=== PATIENT | male | born 1980 | race Two or more races ===

== ENCOUNTER 2018-04-27 08:10 | Emergency (ER) | payer OTHER ==
[~2018-04-27] VITALS: Ht 185.4 cm; Wt 93.4 kg
--- NOTE | 2018-04-27 08:15 | NUR ---
AAOX3, BIBRA 83 FOR PSYCH EVAL, PT C/O AUDITORY HALLUCINATION, THE VOICE IS TELLING HIM TO RUN INTO THE TRAFFIC. PATIENT WAS CALM AND COOPERATIVE AT THIS TIME. SKIN IS WARM AND DRY. DR PATTEN AT BS FOR EVAL.
[2018-04-27] MEDS ORDERED: OLANZAPINE 5 MG TABLET PO ONE (08:30)
[2018-04-27] MEDS ORDERED: OLANZAPINE 5 MG TABLET ONE (08:36)
[2018-04-27 08:39] LABS: BASOPHILS % (AUTO) 0.2 % (0.0-2.0); HEMATOCRIT 41 % (39-51); HEMOGLOBIN 13.5 g/dL (13.5-17.5); LYMPHOCYTES # (AUTO) 2.1 /CMM (0.8-4.8); LYMPHOCYTES % (AUTO) 12.9 % (20.0-44.0); MEAN CORPUSCULAR HEMOGLOBIN 32 PG (26.0-33.0); MEAN CORPUSCULAR HGB CONC 33 g/dl (31.0-36.0); MEAN CORPUSCULAR VOLUME 97 fL (80-96); MONOCYTES # (AUTO) 0.5 /CMM (0.1-1.30); MONOCYTES % (AUTO) 3.3 % (2.0-12.0); NEUTROPHILS # (AUTO) 13.4 /CMM (1.8-8.9); NEUTROPHILS % (AUTO) 83.6 % (43.0-81.0); PLATELET COUNT (AUTO) 355 /CMM (150-450); RDW COEFFICIENT OF VARIATION 14.3 (11.5-15.0); RED BLOOD CELL COUNT(AUTO) 4.24 MIL/uL (4.5-6.0)
[2018-04-27] MEDS ORDERED: LORAZEPAM 1 MG TABLET ONE (08:39)
[2018-04-27 09:00] LABS: CALCIUM, SERUM 8.9 mg/dL (8.5-10.1); CARBON DIOXIDE 26 mmol/L (21-32); CHLORIDE 105 mmol/L (98-107); GLUCOSE 95 mg/dL (74-106); POTASSIUM 3.9 mmol/L (3.5-5.1); SODIUM SERUM 143 mmol/L (136-145); UREA NITROGEN, BLOOD 10 mg/dL (7-18)
[2018-04-27] MEDS ORDERED: LORAZEPAM 1 MG TABLET PO ONE (09:00)
[2018-04-27 09:05] LABS: ACETAMINOPHEN 0 ug/ml (10-30); ALANINE AMINOTRANSFERASE 100 U/L (12-78); ALBUMIN 3.6 g/dL (3.4-5.0); ALCOHOL, BLOOD < 3 mg/dL (0-0); ALKALINE PHOSPHATASE 95 U/L (46-116); ASPARTATE AMINOTRANSFERASE 52 U/L (15-37); BILIRUBIN,DIRECT 0.1 mg/dL (0.0-0.2); BILIRUBIN,TOTAL 0.2 mg/dL (0.2-1.0); TOTAL PROTEIN, SERUM 7.7 g/dL (6.4-8.2)
--- NOTE | 2018-04-27 09:08 | NUR ---
URINE OBTAINED AND SENT TO LAB.
[2018-04-27 09:30] LABS: APPEARANCE,URINE Clear (CLEAR); BILIRUBIN,URINE Negative (NEGATIVE); BLOOD, URINE Negative Ery/uL (NEGATIVE); COLOR,URINE Yellow (YELLOW); KETONES,URINE Negative (NEGATIVE); LEUKOCYTE ESTERASE ,URINE Negative (NEGATIVE); NITRITE, URINE Negative (NEGATIVE); PH,URINE 5.5 (5.0-8.0); PROTEIN,URINE Trace mg/dl (NEGATIVE); UGLUCOSE Negative (NEGATIVE); UROBILINOGEN,URINE 0.2 EU/dL (0.2)
[2018-04-27 09:42] LABS: BACTERIA,URINE Rare /HPF (None Seen); RBC,URINE 0-2 /HPF (0-2); SQUAMOUS EPITHELIAL CELL,UR Rare /HPF (None Seen); WBC,URINE 0-2 /HPF (0-3)
[2018-04-27 10:10] VITALS: BP 122/66
--- NOTE | 2018-04-27 11:25 | NUR ---
Accepted at [facility] Dr. De La Torre Call for report- [phone] ext. [phone]
--- NOTE | 2018-04-27 12:04 | NUR ---
[facility] ETA 1258
--- NOTE | 2018-04-27 12:08 | NUR ---
REPORT GIVEN TO ANDREI ECHEVERRIA FOR HÉCTOR UPON TRANSFER.
--- NOTE | 2018-04-27 12:43 | NUR ---
Report given to emt at bedside. Patient discharged to [facility] in stable condition. Written and verbal after care instructions given. Patient verbalizes understanding of instruction. Patient left via ambulance.
== END 2018-04-27 12:43 ==
LOC: ER 08:12
DX: F28 Other psychotic disorder not due to a substance or known physiological condition (principal); F20.9 Schizophrenia, unspecified; F22 Delusional disorders
CPT/HCPCS: 36415; 80048; 80076; 80305; 80329; 81001; 85025; 99285; A4606; G0480 ×2; Z7610; 81000-TC

== ENCOUNTER 2018-08-10 09:59 | Emergency (ER) | payer OTHER ==
[~2018-08-10] VITALS: Ht 182.9 cm; Wt 107.5 kg
--- NOTE | 2018-08-10 10:22 | NUR ---
BIB SHERRIFF OFFICERS, PT C/O NUMBNESS ON FINGERS & RT FOOT W/ SOB & CP STARTED 1 HR AGO. PT IN CUSTODY & ON SUICIDAL WATCH PER [facility] OFFICERS. PT AAOX4, VSS. DENIES SOB, DIZZINESS, WEAKNESS OR ANY OTHER DISCOMFORT @ THIS TIME. AWAITING EVAL BY ERMD & WILL CONT TO MONITOR. SHAWN OFFICERS @ BS.
--- NOTE | 2018-08-10 12:09 | NUR ---
Patient discharged to home in stable condition. Written and verbal after care instructions given. Patient verbalizes understanding of instruction.
[2018-08-10 12:12] VITALS: BP 124/75
== END 2018-08-10 12:13 ==
LOC: ER 10:05
DX: R07.89 Other chest pain (principal); F41.9 Anxiety disorder, unspecified; F20.9 Schizophrenia, unspecified; F31.9 Bipolar disorder, unspecified; F22 Delusional disorders

== ENCOUNTER 2018-09-26 10:13 | Emergency (ER) | payer OTHER ==
[~2018-09-26] VITALS: Ht 182.9 cm; Wt 99.8 kg
--- NOTE | 2018-09-26 11:26 | NUR ---
NILAY 881 FROM [place] FOR SI, HEARING VOICES PLAN IS TO OD HIMSELF WITH PILLS. -HI. SKIN INTACT, NO ACUTE DISTRESS NOTED. SUICIDE PRECAUTIONS IMPLEMENTED. READY FOR EVAL.
[2018-09-26 11:52] LABS: BASOPHILS % (AUTO) 0.3 % (0.0-2.0); EOSINOPHILS % (AUTO) 0.4 % (0.0-6.0); HEMATOCRIT 43 % (39-51); HEMOGLOBIN 14.9 g/dL (13.5-17.5); LYMPHOCYTES # (AUTO) 1.5 /CMM (0.8-4.8); LYMPHOCYTES % (AUTO) 9.6 % (20.0-44.0); MEAN CORPUSCULAR HGB CONC 34 g/dl (31.0-36.0); MEAN CORPUSCULAR VOLUME 95 fL (80-96); MONOCYTES % (AUTO) 6.3 % (2.0-12.0); NEUTROPHILS # (AUTO) 13.1 /CMM (1.8-8.9); NEUTROPHILS % (AUTO) 83.4 % (43.0-81.0); PLATELET COUNT (AUTO) 236 /CMM (150-450); RED BLOOD CELL COUNT(AUTO) 4.59 MIL/uL (4.5-6.0); WHITE BLOOD COUNT (AUTO) 15.7 K/uL (4.3-11.0)
--- NOTE | 2018-09-26 12:11 | NUR ---
URINE SENT TO STAT LAB
[2018-09-26 12:14] LABS: CALCIUM, SERUM 9.1 mg/dL (8.5-10.1); CARBON DIOXIDE 30 mmol/L (21-32); CHLORIDE 102 mmol/L (98-107); CREATININE 0.7 mg/dL (0.6-1.3); GLUCOSE 101 mg/dL (74-106); POTASSIUM 3.9 mmol/L (3.5-5.1); SODIUM SERUM 140 mmol/L (136-145); UREA NITROGEN, BLOOD 14 mg/dL (7-18)
[2018-09-26 12:18] LABS: ALANINE AMINOTRANSFERASE 59 U/L (12-78); ALBUMIN 3.5 g/dL (3.4-5.0); ALCOHOL, BLOOD < 3 mg/dL (0-0); ALKALINE PHOSPHATASE 124 U/L (46-116); ASPARTATE AMINOTRANSFERASE 33 U/L (15-37); BILIRUBIN,DIRECT 0.1 mg/dL (0.0-0.2); BILIRUBIN,TOTAL 0.4 mg/dL (0.2-1.0); TOTAL PROTEIN, SERUM 7.4 g/dL (6.4-8.2)
[2018-09-26 12:19] LABS: ACETAMINOPHEN 0 ug/ml (10-30); SALICYLATE 1.1 mg/dL (2.8-20.0)
[2018-09-26 12:23] LABS: APPEARANCE,URINE Turbid (CLEAR); BILIRUBIN,URINE SMALL (NEGATIVE); BLOOD, URINE Negative Ery/uL (NEGATIVE); KETONES,URINE Trace (NEGATIVE); LEUKOCYTE ESTERASE ,URINE Negative (NEGATIVE); NITRITE, URINE Negative (NEGATIVE); PH,URINE 5.5 (5.0-8.0); PROTEIN,URINE 30 mg/dl (NEGATIVE); UGLUCOSE Negative (NEGATIVE); UROBILINOGEN,URINE 0.2 EU/dL (0.2)
[2018-09-26 12:29] LABS: COLOR,URINE Dark Yellow (YELLOW)
[2018-09-26 12:33] LABS: BACTERIA,URINE None seen /HPF (None Seen); RBC,URINE 0-2 /HPF (0-2); SQUAMOUS EPITHELIAL CELL,UR Few /HPF (None Seen); URINE AMORPHOUS URATE Moderate /HPF (None Seen); WBC,URINE 0-2 /HPF (0-3)
--- NOTE | 2018-09-26 13:11 | NUR ---
TAX AGENT AT BEDSIDE
--- NOTE | 2018-09-26 13:20 | NUR ---
STACEY, DICTATING MACHINE MECHANIC, CONTACTED FOR PSYCH EVAL PER DR ALICEA
--- NOTE | 2018-09-26 13:40 | NUR ---
PT PROVIDED FOOD TRAY
--- NOTE | 2018-09-26 14:13 | NUR ---
SEEN BY KAYLEN IBARRA
--- NOTE | 2018-09-26 14:42 | NUR ---
Patient discharged to home in stable condition. Written and verbal after care instructions given. Patient verbalizes understanding of instruction. Addendum: 09/26/18 at 1520 by ROBE Amendment undone in ED - 09/26/18 at 1521 by ROBE REFUSED TO WAIT FOR ACI OR SIGN DISCHARGE PAPERS.
--- NOTE | 2018-09-26 14:43 | NUR ---
REFUSED TO WAIT FOR ACI OR SIGN DISCHARGE PAPERS.
[2018-09-26 15:22] VITALS: BP 142/84
== END 2018-09-26 14:44 | disposition home or self-care (01) ==
LOC: ER 10:13
DX: R45.851 Suicidal ideations (principal); D72.829 Elevated white blood cell count, unspecified; F20.9 Schizophrenia, unspecified; F31.9 Bipolar disorder, unspecified; F22 Delusional disorders; Z59.0 Homelessness
CPT/HCPCS: 36415; 71045-TC; 80048-TC; 80076-TC; 80305; 81000-TC; 85025-TC; G0480

== ENCOUNTER 2021-06-08 15:35 | Emergency (ER) | payer OTHER ==
[~2021-06-08] VITALS: Ht 182.9 cm; Wt 95.3 kg
[2021-06-08 15:57] LABS: BASOPHILS % (AUTO) 0.4 % (0.0-2.0); EOSINOPHILS % (AUTO) 0.2 % (0.0-6.0); HEMATOCRIT 43 % (39-51); HEMOGLOBIN 14.3 g/dL (13.5-17.5); LYMPHOCYTES # (AUTO) 1.8 K/uL (0.8-4.8); LYMPHOCYTES % (AUTO) 17.6 % (20.0-44.0); MEAN CORPUSCULAR HGB CONC 33 g/dl (31.0-36.0); MEAN CORPUSCULAR VOLUME 97 fL (80-96); MONOCYTES # (AUTO) 0.4 K/uL (0.1-1.30); MONOCYTES % (AUTO) 4.3 % (2.0-12.0); NEUTROPHILS # (AUTO) 7.8 K/uL (1.8-8.9); NEUTROPHILS % (AUTO) 77.5 % (43.0-81.0); PLATELET COUNT (AUTO) 251 K/uL (150-450); RED BLOOD CELL COUNT(AUTO) 4.45 MIL/uL (4.5-6.0)
[2021-06-08 16:11] LABS: CALCIUM, SERUM 8.2 mg/dL (8.5-10.1); CARBON DIOXIDE 25 mmol/L (21-32); CHLORIDE 104 mmol/L (98-107); CREATININE 0.7 mg/dL (0.6-1.3); GLUCOSE 92 mg/dL (74-106); POTASSIUM 3.6 mmol/L (3.5-5.1); SODIUM SERUM 141 mmol/L (136-145); UREA NITROGEN, BLOOD 8 mg/dL (7-18)
[2021-06-08 16:17] LABS: ACETAMINOPHEN < 10 ug/ml (10-30); ALANINE AMINOTRANSFERASE 71 U/L (12-78); ALBUMIN 3.9 g/dL (3.4-5.0); ALCOHOL, BLOOD 92 mg/dL (0-0); ALKALINE PHOSPHATASE 118 U/L (46-116); ASPARTATE AMINOTRANSFERASE 70 U/L (15-37); BILIRUBIN,DIRECT 0.1 mg/dL (0.0-0.2); BILIRUBIN,TOTAL 0.4 mg/dL (0.2-1.0); TOTAL PROTEIN, SERUM 8.1 g/dL (6.4-8.2)
--- NOTE | 2021-06-08 20:08 | NUR ---
PATIENT CAME TO THE ER BED 14 BIBSELF C/O SUICIDAL IDEATIONPLANS TO JUMP IN FRONT OF A TRAIN. PATIENT STATES, "I WANT VOLUNTARY PSYCH ADMISSION TO [facility]". PATIENT IS ALERT AND ORIENTED x4. DENIES PAIN, DENIES SOB. PATIENT IS CONNECTED TO THE MONITOR. PERSONAL BELONGINGS ARE REMOVED AND PLACED INTO LOCKED LOCKER. PATIENT IS CURRENTLY IN A CLEAN GOWN. SITTER IS AT BEDSIDE.
--- NOTE | 2021-06-08 21:52 | NUR ---
PATIENT IS RESTING. EYES ARE OPENED. PATIENT IS BREATHING EVENLY AND UNLABORED ON ROOM AIR. CURRENTLY NO COMPLAINTS. SITTER IS AT BEDSIDE.
--- NOTE | 2021-06-08 22:00 | NUR ---
pt sitting quietly watching tv, attached to monitor and pox.
--- NOTE | 2021-06-09 | NUR ---
Patient is resting comfortably in bed with eyes closed. Easily aroused. VSS
--- NOTE | 2021-06-09 02:00 | NUR ---
pt sleeping, easily arousable, attached to monitor
--- NOTE | 2021-06-09 03:45 | NUR ---
pt sleeping, breathing evenly and unlabored. vss
--- NOTE | 2021-06-09 05:41 | NUR ---
urine sample and covid swab sent to lab
[2021-06-09 05:54] LABS: COLOR,URINE YELLOW (YELLOW)
[2021-06-09 05:55] LABS: BILIRUBIN,URINE NEGATIVE (NEGATIVE); LEUKOCYTE ESTERASE ,URINE NEGATIVE (NEGATIVE); NITRITE, URINE NEGATIVE (NEGATIVE); PH,URINE 6.5 (5.0-8.0); PROTEIN,URINE NEGATIVE (NEGATIVE); UGLUCOSE NEGATIVE (NEGATIVE); UROBILINOGEN,URINE 0.2 EU/dL (0.2)
[2021-06-09 06:04] LABS: BACTERIA,URINE None seen /HPF (None Seen); RBC,URINE 0-2 /HPF (0-2); SQUAMOUS EPITHELIAL CELL,UR Few /HPF (None Seen); WBC,URINE 0-2 /HPF (0-3)
[2021-06-09 06:05] LABS: MUCUS,URINE Few /LPF (None Seen)
--- NOTE | 2021-06-09 06:27 | NUR ---
faxed face sheet and clinicals to [facility] intake. pending covid result
[2021-06-09 13:17] VITALS: BP 120/63
--- NOTE | 2021-06-09 13:21 | NUR ---
CALLED [facility] FOR UPDATE THEY HAVE CLINICALS JUST AWAITING ACCEPTANCE.
--- NOTE | 2021-06-09 13:28 | NUR ---
"SS Consult: SS consult for SI. Pt. Is a 41-year-old male. Pt. demonstrates adequate insight to the reason for hospitalization. Per pt., he was brought to hospital by police due to SI. Pt. was oriented x3, alert, and cooperative. During interview, pt. was capable of following directions, made appropriate eye-contact, and had scratches on face due to hurting self. Per pt., he tried cutting his face. KAYLEN explored pt.s Hx of mental health and substance abuse. Pt. reported no Hx of mental health, SI/HI, denied AH/VH, paranoia or delusions. Per pt., he currently uses alcohol and marijuana. Per pt., he has been feeling hopeless and tried hurting himself in the past [2019]. Per pt., he has tried hurting self with cutting parts of his face. KAYLEN explored pt.s living situation. Per pt., he has been living on the streets for a month. Per pt., he reports having no adequate support. KAYLEN explored pt.s financial status. Per pt., he receives GR. Pt. reported that he wants a referral to [facility]. KAYLEN faxed pt.s clinical paperwork over to [facility] [Jefe, fax number: [phone]]. Jefe mentioned that pt. has been accepted. KAYLEN provided homeless and substance abuse resources and pt. accepted. Pt. was willing to sign homeless waiver. Plan: KAYLEN provided available resources and pt. accepted. KAYLEN faxed over pt.s clinical paperwork to [facility] and pt. has been accepted. Per pt., he will use resources that were provided. Resources Provided: Year-round shelters: [place] [facility] [address] [place] [address] ; [facility] [address] [place] [address]; [place] [facility] Umtmekm8241 [facility] [address] Winter Shelters: Carlos Manuel Cassidy Provider: Herman [facility] [place] Address: [address] [place], [address] # of Beds: 47 Population Served: [facility] [place] 6 | [facility] Ilda Chaudhryhusolitario Cassidy Provider: [facility] at Last Address: [facility] [address] [place] [address], [address] # of Beds: 66 Population Served: [facility] Micki Venus Provider: First to Serve Address: [address] [facility], [address] # of Beds: 56 Population Served: [facility] Maxx [place] Provider: [facility] Address: [address] [facility], [address] # of Beds: 49 Population Served: Coed SPA 8 | [place] Provider: First to Serve Address: [address] [facility], [address] # of Beds: 37 Population Served: Coed Hygiene: [facility]: [address] [place] ; [facility] [address] [facility] ; [facility] 2472 [facility] [place] . Food Resources: [facility] [employer] [facility] at [facility]- 57[address] [facility]; Meet Each Need with Dignity ([facility]) [address] [facility] [place]; [facility] Food Pantry 4305 [facility]; [facility] 8520 [facility]. Mental Health resources provided: [facility] [address] [place] [address] ; [facility] [address] [facility] [facility] [address], [place] [address] ; Bhavya Rey [facility] [address] [place] [address] ; [facility] [address] [place], [place] [id number] Healthcare Clinics: [facility] [address] [facility], [address] [place]. [place] ; [facility] [address] [facility] [address] [place] [address]; [facility] [place] [address] [place] [address] [phone]) [phone] Counseling--Outpatient [facility] [address] [facility], [address] [place], [place] [address] (Specializes in in-depth psychotherapy for emotional distress: anxiety, depression, interpersonal conflicts, life transitions, childhood abuse) [facility] [address] [place], [place] [phone] (Assist with solving problem marital difficulties, separation & divorce, aging parents, & grief, chronic & terminal illness) [facility] [address] [place] [address] (Deal with loss & grief, anxiety, marital difficulties) Homebound/Mental Health Services [address] [facility] [address] [place] [address] (Provide in-home mental services to people who are incapable of leaving their homes) Organization for Needs of the Elderly Senior Service/Resource Center [address] [facility] [place] [address] [facility] [address] [facility] [place] [address] PSYCHIATRIC OUTPATIENT SERVICES [facility] Partial Hospitalization and Intensive Outpatient Program (Managed Care and [place] Only)[address] [facility]. [facility] [phone] [facility] Partial Hospitalization and Outpatient [id number] [facility]. [address] [place], [place] [phone] [facility] Ifm68027 [facility] [address] [place], [place] [phone] [facility] Partial Hospitalization and Outpatient [id number] Ligia [place], [phone] Substance Abuse resources provided included: [facility] [place] Substance Abuse Self-Helpline (SAS) ; [facility] [address] [place]. [place] [address] ; [facility] [address] [facility] [address] ; [facility] Rehabilitation [facility] [address] [place] [address] ; [facility] [place] [address] [facility] [phone] ; [facility] Treatment [facility] 4940 [facility] [address] ; Iliana [facility] 909 [facility] [phone] ; [facility] Substance Abuse Helpline(SAS)[facility] ; [facility] ; [facility]; [facility]; Cri[facility]Help [place]; I-ADARP [facility] [place]; [facility] [place]; [facility] [place]; [facility] [place]; [facility] [place]; Alcoholics Anonymous -SFV; Uz-Leir-Jwxqxtu ; Marijuana Anonymous -SFV; Narcotics Anonymous www.na.org; Behavioral Health and Substance Abuse Referrals and Clinics for Screening [facility] [address] [place] [address] Not a detention, do not send patients there for shelters. Homeless resources. Appointment is needed. [phone] Services include comprehensive field-based mental health services, with case management and medication support services. Laundry, shower and locker facilities are available. APPLICATION PROCEDURE Call the central intake number for information about all programs provided by the agency and to schedule appointments. Homeless mentally ill people may be seen at [facility] on a walk-in basis. [facility] [place] (Behavioral Health) [address], 2nd floor Need appointment M[place] Raines [address] Main Number: Adult Full Service Partnership (AFSP): Contact [facility] [address]issy Love, MATT [address] Walk-in for psychiatric consultation HOURS: Mon-Mon 8am--7pm Saturdays 9am--5:30pm Closed on Sundays Clinic stated that walk-ins are welcome, but there will be a long wait. No appointments. Services: mental health services, medications, community assistant for resource linkage. [facility] (Behavioral Health) [facility] [place] [address] Operation Hours: MON - MON 8:00 a.m. - 5:00 p.m. Walk In Hours: MON - MON 8:00 a.m. - 5:00 p.m. Services by Age: Adults and Older Adults Mental Health Services: Field Capable Clinical Services (FCCS) Medication Support Mental Health Services Peer Support NOTE: [facility] 27/02 helpline: Adolescent and Childrens Psychiatric Treatment [facility] Coordinated Childrens Services Crisis stabilization, medication support mental health services [address] [facility] [address] Appointment needed Counseling [facility] [place] for Individual and Family Counseling Appointment needed [address] Lizz[address] [facility] [address] Counseling [place] scale [address]. # 629 [facility] [address] [facility] [address], Vaccines and infectious disease resource [address] Madhu [place]. MATT Hours: M, T, Th, F 8:30AM-4:30PM Walk-ins allowed Provide medical screening and pharmacy [facility] [address] [facility] [address] [place] [address] Vaccines and infectious diseases Hours M-F 8AM-3:30PM Walk-ins allowed Provide medical screening and pharmacy [facility] [address] [facility]. [place] [phone] Hours 8AM-4:30PM Walk-ins allowed Provide medical screening and pharmacy Alcohol and Drug Treatment Programs [facility] Substance Abuse Self-helpline ([facility]) Substance Abuse Contact number . Call the hotline and the sole leveling machine operator will screen and link individual to an appropriate program. Must have Medi-arianne or be Medi-arianne eligible. [facility] [address] [facility] [place]. [place] 07[address]51 [facility] [address] [facility] [place] [address] Appointment needed Intake at 8.00 am but this does not mean acceptance [facility] Rehabilitation Program (Yazdanism based) [address] [facility]. [place] [phone] (Six months program and need to work for 8 hrs per day while in treatment) [facility] (No insurance required) [address] [place], [place] [phone] [facility] 2580 [facility] [address] Closed on Monday Open Monday through Monday 9 am -6 pm Monday 10am 5 pm Closed on Monday [facility] [phone] [place] [address] Prefer phone calls. They do allow walk-ins but prefer appointments."
--- NOTE | 2021-06-09 14:37 | NUR ---
CALL FROM MARISA,ACCEPTED AT [facility] BY DR ALEXANDRE,REPORT TO DENISE ECHEVERRIA AT [phone]
--- NOTE | 2021-06-09 15:40 | NUR ---
CALLED [facility] FOR TRANSPORT ETA 45 MINS.
--- NOTE | 2021-06-09 16:25 | NUR ---
Report given to nurse Gonzales from Navid Raines
--- NOTE | 2021-06-09 17:24 | NUR ---
REPORT GIVEN TO EMT FOR PT TRANSFER TO [facility].
== END 2021-06-09 17:25 ==
LOC: ER 15:39
DX: R45.851 Suicidal ideations (principal); F31.9 Bipolar disorder, unspecified; F20.9 Schizophrenia, unspecified; Z20.822 Contact with and (suspected) exposure to COVID-19; F19.10 Other psychoactive substance abuse, uncomplicated; R82.998 Other abnormal findings in urine
CPT/HCPCS: 36415; 80048; 80076; 80143; 80307; 80320; 81001; 85025; 87426; 99285; C9803; G0480

== ENCOUNTER 2021-07-28 05:35 | Emergency (ER) | payer OTHER ==
[~2021-07-28] VITALS: Ht 182.9 cm; Wt 95.3 kg
[2021-07-28 07:08] LABS: BASOPHILS # (AUTO) 0.1 K/uL (0.0-0.2); BASOPHILS % (AUTO) 0.8 % (0.0-2.0); EOSINOPHILS % (AUTO) 0.1 % (0.0-6.0); HEMATOCRIT 44 % (39-51); HEMOGLOBIN 14.7 g/dL (13.5-17.5); LYMPHOCYTES % (AUTO) 15.3 % (20.0-44.0); MEAN CORPUSCULAR HGB CONC 34 g/dl (31.0-36.0); MEAN CORPUSCULAR VOLUME 96 fL (80-96); MONOCYTES # (AUTO) 0.8 K/uL (0.1-1.30); MONOCYTES % (AUTO) 6.6 % (2.0-12.0); NEUTROPHILS # (AUTO) 9.9 K/uL (1.8-8.9); NEUTROPHILS % (AUTO) 77.2 % (43.0-81.0); PLATELET COUNT (AUTO) 249 K/uL (150-450); RED BLOOD CELL COUNT(AUTO) 4.58 MIL/uL (4.5-6.0); WHITE BLOOD COUNT (AUTO) 12.9 K/uL (4.3-11.0)
[2021-07-28 07:09] LABS: BILIRUBIN,URINE NEGATIVE (NEGATIVE); COLOR,URINE YELLOW (YELLOW); LEUKOCYTE ESTERASE ,URINE NEGATIVE (NEGATIVE); NITRITE, URINE NEGATIVE (NEGATIVE); PH,URINE 5.5 (5.0-8.0); PROTEIN,URINE TRACE mg/dl (NEGATIVE); UGLUCOSE NEGATIVE (NEGATIVE); UROBILINOGEN,URINE 0.2 EU/dL (0.2)
[2021-07-28 07:19] LABS: BACTERIA,URINE None seen /HPF (None Seen); RBC,URINE 0-2 /HPF (0-2); SQUAMOUS EPITHELIAL CELL,UR Few /HPF (None Seen); WBC,URINE NONE SEEN /HPF (0-3)
[2021-07-28 07:20] LABS: URINE AMORPHOUS URATE Moderate /HPF (None Seen)
[2021-07-28 07:26] LABS: ALANINE AMINOTRANSFERASE 72 U/L (12-78); ALBUMIN 4.2 g/dL (3.4-5.0); ALCOHOL, BLOOD < 3 mg/dL (0-0); ALKALINE PHOSPHATASE 115 U/L (46-116); ASPARTATE AMINOTRANSFERASE 54 U/L (15-37); BILIRUBIN,DIRECT 0.1 mg/dL (0.0-0.2); BILIRUBIN,TOTAL 0.3 mg/dL (0.2-1.0); CARBON DIOXIDE 27 mmol/L (21-32); CHLORIDE 103 mmol/L (98-107); CREATININE 0.9 mg/dL (0.6-1.3); GLUCOSE 102 mg/dL (74-106); SODIUM SERUM 142 mmol/L (136-145); TOTAL PROTEIN, SERUM 8.4 g/dL (6.4-8.2); UREA NITROGEN, BLOOD 11 mg/dL (7-18)
[2021-07-28 07:41] LABS: ACETAMINOPHEN < 10 ug/ml (10-30)
--- NOTE | 2021-07-28 10:36 | NUR ---
FAXED CLINICALS TO [facility].
[2021-07-28] MEDS ORDERED: ACETAMINOPHEN 325 MG TABLET ONE (10:37)
[2021-07-28] MEDS ORDERED: ACETAMINOPHEN 325 MG TABLET PO ONE (11:00)
--- NOTE | 2021-07-28 12:30 | NUR ---
THE PATIENT IS PROVIDED WITH LUNCH. TOLERATED PROVIDED MEAL WELL
--- NOTE | 2021-07-28 15:48 | NUR ---
THE PATIENT IS ALERT AND ORIENTED X4. DENIES PAIN. IN ROOM AIR AND DENIES SOB. RESPIRATION REGULAR AND UNLABORED. WILL CONTINUE TO MONITOR THE PATIENT.
--- NOTE | 2021-07-28 17:05 | NUR ---
ACCEPTED AT [facility] UNDER DR. CURRAN [phone] FOR REPORT AND BED ASSIGNMENT
--- NOTE | 2021-07-28 17:34 | NUR ---
REPORT GIVEN TO NURSING GREG RUIZ FROM [facility]
--- NOTE | 2021-07-28 17:35 | NUR ---
[facility] CALLED ETA 45 MINS.
[2021-07-28 17:45] VITALS: BP 134/73
--- NOTE | 2021-07-28 18:00 | NUR ---
PICKED UP BY [facility] IN STABLE CONDITION
== END 2021-07-28 18:36 ==
LOC: ER 05:35
DX: R45.851 Suicidal ideations (principal); Z20.822 Contact with and (suspected) exposure to COVID-19; Z59.01 Sheltered homelessness; Z91.51 Personal history of suicidal behavior; F15.90 Other stimulant use, unspecified, uncomplicated; F20.9 Schizophrenia, unspecified; F31.9 Bipolar disorder, unspecified; M26.622 Arthralgia of left temporomandibular joint; Z91.14 Patient's other noncompliance with medication regimen
CPT/HCPCS: 36415; 70110; 80048; 80076; 80143; 80307; 80320; 81001; 85025; 87426; 99285; C9803; G0480

== ENCOUNTER 2021-08-06 11:08 | Emergency (ER) | payer OTHER ==
[~2021-08-06] VITALS: Ht 180.3 cm; Wt 108.9 kg
--- NOTE | 2021-08-06 11:08 | NUR ---
PT [address]IBRA [address] C/O R FOOT PAIN S/P GLF LAST NIGHT. PT IS AAOX4, NOT IN RESPIRATORY DISTRESS, V/S STABLE, KEPT RESTED AND COMFORTABLE, WILL CONTINUE TO MONITOR.
[2021-08-06 12:54] LABS: BASOPHILS % (AUTO) 0.3 % (0.0-2.0); EOSINOPHILS % (AUTO) 0.1 % (0.0-6.0); HEMATOCRIT 47 % (39-51); HEMOGLOBIN 15.5 g/dL (13.5-17.5); LYMPHOCYTES # (AUTO) 1.4 K/uL (0.8-4.8); LYMPHOCYTES % (AUTO) 9.6 % (20.0-44.0); MEAN CORPUSCULAR HGB CONC 33 g/dl (31.0-36.0); MEAN CORPUSCULAR VOLUME 97 fL (80-96); MONOCYTES # (AUTO) 0.3 K/uL (0.1-1.30); MONOCYTES % (AUTO) 2.3 % (2.0-12.0); NEUTROPHILS # (AUTO) 12.9 K/uL (1.8-8.9); NEUTROPHILS % (AUTO) 87.7 % (43.0-81.0); PLATELET COUNT (AUTO) 258 K/uL (150-450); RED BLOOD CELL COUNT(AUTO) 4.83 MIL/uL (4.5-6.0); WHITE BLOOD COUNT (AUTO) 14.7 K/uL (4.3-11.0)
[2021-08-06 12:58] LABS: CALCIUM, SERUM 8.8 mg/dL (8.5-10.1); CARBON DIOXIDE 24 mmol/L (21-32); CHLORIDE 101 mmol/L (98-107); CREATININE 0.8 mg/dL (0.6-1.3); GLUCOSE 147 mg/dL (74-106); POTASSIUM 3.7 mmol/L (3.5-5.1); SODIUM SERUM 140 mmol/L (136-145); UREA NITROGEN, BLOOD 11 mg/dL (7-18)
[2021-08-06 13:03] LABS: ALANINE AMINOTRANSFERASE 59 U/L (12-78); ALCOHOL, BLOOD 100 mg/dL (0-0); ALKALINE PHOSPHATASE 128 U/L (46-116); ASPARTATE AMINOTRANSFERASE 42 U/L (15-37); BILIRUBIN,DIRECT 0.1 mg/dL (0.0-0.2); BILIRUBIN,TOTAL 0.3 mg/dL (0.2-1.0); TOTAL PROTEIN, SERUM 8.5 g/dL (6.4-8.2)
[2021-08-06 13:04] LABS: ACETAMINOPHEN < 10 ug/ml (10-30)
--- NOTE | 2021-08-06 13:05 | NUR ---
PT STATED HE FEELS SUICIDAL AND REQUESTING PSYCH ADMISSION. AWARE.
--- NOTE | 2021-08-06 18:19 | NUR ---
CALLED [facility], CRISIS CLINICAN AND LVM REGARDING PLAN OF CARE. PT IS VOLUNTARY PSYCH
[2021-08-06] MEDS ORDERED: IBUPROFEN 600 MG TABLET PO ONE (18:30)
[2021-08-06] MEDS ORDERED: IBUPROFEN 600 MG TABLET ONE (18:35)
--- NOTE | 2021-08-06 19:40 | NUR ---
CLINICALS FAXED TO [facility]
--- NOTE | 2021-08-06 20:30 | NUR ---
CALLED [facility] TO SEE IF PATIENT CAN BE ADMITTED WITH A SPLINT AND CRUTCHES BUT CRUTCHES WILL BE TAKEN AND PT HAVE TO GO TO [facility]. PT WAS MADE AWARE AND DOES NOT WANT TO GO ANYMORE. PT STATES THAT HE IS FEELING BETTER AND NO LONGER SUICIAL. MD WAS MADE AWARE OF PT'S DECISION.
--- NOTE | 2021-08-06 20:35 | NUR ---
PT IS MEDICALLY CLEARED DISCHARGED IN STABLE CONDITION. ACI WAS GIVEN TO PT. PT VERBALIZED UNDERSTANDING OF INSTRUCTION. PT DOES NOT WANT TO GO VOLUNTARY FOR ADMISSION AND DENIES SUICIDAL IDEATION.
[2021-08-07 06:48] VITALS: BP 135/71
== END 2021-08-06 20:35 | disposition home or self-care (01) ==
LOC: ER 11:14
DX: S82.831A Other fracture of upper and lower end of right fibula, initial encounter for closed fracture (principal); W01.0XXA Fall on same level from slipping, tripping and stumbling without subsequent striking against object, initial encounter; Y92.480 Sidewalk as the place of occurrence of the external cause; R45.851 Suicidal ideations; F10.129 Alcohol abuse with intoxication, unspecified; Y90.5 Blood alcohol level of 100-119 mg/100 ml; F31.9 Bipolar disorder, unspecified; F20.9 Schizophrenia, unspecified; Z59.02 Unsheltered homelessness; Z20.822 Contact with and (suspected) exposure to COVID-19
CPT/HCPCS: 29515; 36415; 73610; 80048; 80076; 80143; 80320; 85025; 87426; 99284; C9803; G0480

== ENCOUNTER 2021-08-07 20:55 | Emergency (ER) | payer OTHER ==
[~2021-08-07] VITALS: Ht 175.3 cm; Wt 74.8 kg
[2021-08-08 01:15] VITALS: BP 135/74
--- NOTE | 2021-08-08 01:30 | NUR ---
PATIENT BIBSELF C/O +SI TO SELF HARM WANTING VOL PSYCH ADMIT. PATIENT IS A/O X 4, RR EVEN AND UNLABORED, NO SOB NOTED. PATIENT NOTED WITH STEADY GAIT. PATIENT BROUGHT TO ER BED, PLACED IN HOSPITAL GOWN, BELONGINGS PLACED IN LOCKER, SITTER AT BEDSIDE. PATIENT CONNECTED TO LEARNING AND DEVELOPMENT SPECIALIST AND POX.
[2021-08-08 01:33] LABS: BASOPHILS # (AUTO) 0.1 K/uL (0.0-0.2); BASOPHILS % (AUTO) 0.5 % (0.0-2.0); EOSINOPHILS % (AUTO) 0.3 % (0.0-6.0); HEMATOCRIT 46 % (39-51); HEMOGLOBIN 15.3 g/dL (13.5-17.5); LYMPHOCYTES # (AUTO) 1.6 K/uL (0.8-4.8); LYMPHOCYTES % (AUTO) 14.7 % (20.0-44.0); MEAN CORPUSCULAR HGB CONC 33 g/dl (31.0-36.0); MEAN CORPUSCULAR VOLUME 97 fL (80-96); MONOCYTES # (AUTO) 0.7 K/uL (0.1-1.30); MONOCYTES % (AUTO) 6.4 % (2.0-12.0); NEUTROPHILS # (AUTO) 8.2 K/uL (1.8-8.9); NEUTROPHILS % (AUTO) 78.1 % (43.0-81.0); PLATELET COUNT (AUTO) 249 K/uL (150-450); RED BLOOD CELL COUNT(AUTO) 4.72 MIL/uL (4.5-6.0); WHITE BLOOD COUNT (AUTO) 10.5 K/uL (4.3-11.0)
[2021-08-08 01:56] LABS: ALANINE AMINOTRANSFERASE 48 U/L (12-78); ALBUMIN 3.9 g/dL (3.4-5.0); ALCOHOL, BLOOD < 3 mg/dL (0-0); ALKALINE PHOSPHATASE 121 U/L (46-116); ASPARTATE AMINOTRANSFERASE 28 U/L (15-37); BILIRUBIN,DIRECT 0.1 mg/dL (0.0-0.2); BILIRUBIN,TOTAL 0.4 mg/dL (0.2-1.0); CALCIUM, SERUM 8.6 mg/dL (8.5-10.1); CARBON DIOXIDE 24 mmol/L (21-32); CHLORIDE 101 mmol/L (98-107); CREATININE 1.2 mg/dL (0.6-1.3); GLUCOSE 90 mg/dL (74-106); POTASSIUM 3.3 mmol/L (3.5-5.1); SODIUM SERUM 141 mmol/L (136-145); TOTAL PROTEIN, SERUM 8.5 g/dL (6.4-8.2); UREA NITROGEN, BLOOD 15 mg/dL (7-18)
[2021-08-08 02:07] LABS: ACETAMINOPHEN < 2 ug/ml (10-30)
[2021-08-08 05:22] LABS: BILIRUBIN,URINE NEGATIVE (NEGATIVE); COLOR,URINE YELLOW (YELLOW); LEUKOCYTE ESTERASE ,URINE NEGATIVE (NEGATIVE); NITRITE, URINE NEGATIVE (NEGATIVE); PH,URINE 5.5 (5.0-8.0); PROTEIN,URINE NEGATIVE (NEGATIVE); UGLUCOSE NEGATIVE (NEGATIVE); UROBILINOGEN,URINE 0.2 EU/dL (0.2)
[2021-08-08 05:30] LABS: BACTERIA,URINE None seen /HPF (None Seen); MUCUS,URINE Few /LPF (None Seen); RBC,URINE 0-2 /HPF (0-2); SQUAMOUS EPITHELIAL CELL,UR Few /HPF (None Seen); WBC,URINE 0-2 /HPF (0-3)
--- NOTE | 2021-08-08 05:45 | NUR ---
FACESHEET AND CLINICALS FAXED TO [facility].
--- NOTE | 2021-08-08 12:52 | NUR ---
PT NO LONGER IN THE HOLDING ROOM. PT ELOPED.
== END 2021-08-08 12:54 | disposition left against medical advice (07) ==
LOC: ER 20:57
DX: R45.851 Suicidal ideations (principal); F31.9 Bipolar disorder, unspecified; F20.9 Schizophrenia, unspecified; Z59.00 Homelessness unspecified; Z20.822 Contact with and (suspected) exposure to COVID-19; Z53.29 Procedure and treatment not carried out because of patient's decision for other reasons
CPT/HCPCS: 36415; 80048; 80076; 80143; 80307; 80320; 81001; 85025; 87426; 99283; C9803; G0480

== ENCOUNTER 2021-08-09 08:46 | Emergency (ER) | payer OTHER ==
[~2021-08-09] VITALS: Ht 182.9 cm; Wt 113.4 kg
[2021-08-09 09:02] VITALS: BP 132/88
--- NOTE | 2021-08-09 09:10 | NUR ---
BIBS FOR C/O FEELING DEPRESSED, STILL FEELING SUICIDAL W/ PLAN TO "THROW MYSELF INFRONT OF CAR". DENIES HI. DENIES HAVING ANY TYPE OF HALLUCINATIONS. RESPIRATION REGULAR AND UNLABORED. WILL CONTINUE TO MONITOR THE PATIENT.
[2021-08-09 09:38] LABS: BASOPHILS % (AUTO) 0.5 % (0.0-2.0); HEMATOCRIT 41 % (39-51); LYMPHOCYTES # (AUTO) 1.3 K/uL (0.8-4.8); LYMPHOCYTES % (AUTO) 13.9 % (20.0-44.0); MEAN CORPUSCULAR HGB CONC 34 g/dl (31.0-36.0); MEAN CORPUSCULAR VOLUME 95 fL (80-96); MONOCYTES # (AUTO) 0.5 K/uL (0.1-1.30); NEUTROPHILS # (AUTO) 7.6 K/uL (1.8-8.9); NEUTROPHILS % (AUTO) 79.6 % (43.0-81.0); PLATELET COUNT (AUTO) 228 K/uL (150-450); RED BLOOD CELL COUNT(AUTO) 4.35 MIL/uL (4.5-6.0); WHITE BLOOD COUNT (AUTO) 9.5 K/uL (4.3-11.0)
[2021-08-09 09:52] LABS: CALCIUM, SERUM 8.4 mg/dL (8.5-10.1); CARBON DIOXIDE 26 mmol/L (21-32); CHLORIDE 101 mmol/L (98-107); CREATININE 0.8 mg/dL (0.6-1.3); GLUCOSE 121 mg/dL (74-106); POTASSIUM 3.5 mmol/L (3.5-5.1); SODIUM SERUM 139 mmol/L (136-145); UREA NITROGEN, BLOOD 11 mg/dL (7-18)
[2021-08-09 09:58] LABS: ACETAMINOPHEN 0 ug/ml (10-30); ALANINE AMINOTRANSFERASE 51 U/L (12-78); ALBUMIN 3.4 g/dL (3.4-5.0); ALCOHOL, BLOOD < 3 mg/dL (0-0); ALKALINE PHOSPHATASE 114 U/L (46-116); ASPARTATE AMINOTRANSFERASE 48 U/L (15-37); BILIRUBIN,DIRECT 0.1 mg/dL (0.0-0.2); BILIRUBIN,TOTAL 0.5 mg/dL (0.2-1.0); TOTAL PROTEIN, SERUM 7.3 g/dL (6.4-8.2)
[2021-08-09 10:53] LABS: BILIRUBIN,URINE Negative (NEGATIVE); COLOR,URINE DARK YELLOW (YELLOW); LEUKOCYTE ESTERASE ,URINE Negative (NEGATIVE); NITRITE, URINE Negative (NEGATIVE); PH,URINE 5.5 (5.0-8.0); PROTEIN,URINE Negative (NEGATIVE); UGLUCOSE Negative (NEGATIVE); UROBILINOGEN,URINE 0.2 EU/dL (0.2)
[2021-08-09 11:17] LABS: BACTERIA,URINE Few /HPF (None Seen); SQUAMOUS EPITHELIAL CELL,UR Few /HPF (None Seen); URINE AMORPHOUS URATE Many /HPF (None Seen); WBC,URINE 0-2 /HPF (0-3)
--- NOTE | 2021-08-09 14:46 | NUR ---
SW fax clinicals over to [facility] [fax: [phone]].
--- NOTE | 2021-08-09 16:09 | NUR ---
THE PATIENT IS ACCEPETED TO [facility] UNDER DR DEVINE.
--- NOTE | 2021-08-09 17:22 | NUR ---
REPORT GIVEN TO NURSE REDD FROM [facility]
--- NOTE | 2021-08-09 17:24 | NUR ---
Patient discharged to [facility] in stable condition. Written and verbal after care instructions given. Patient verbalizes understanding of instruction.
== END 2021-08-09 17:25 ==
LOC: ER 08:51
DX: R45.851 Suicidal ideations (principal); F31.9 Bipolar disorder, unspecified; Z20.822 Contact with and (suspected) exposure to COVID-19; F20.9 Schizophrenia, unspecified; Z59.02 Unsheltered homelessness
CPT/HCPCS: 36415; 80048; 80076; 80143; 80307; 80320; 81001; 85025; 87426; 99285; C9803; G0480

== ENCOUNTER 2021-10-05 07:47 | Emergency (ER) | payer OTHER ==
[~2021-10-05] VITALS: Ht 182.9 cm; Wt 99.8 kg
--- NOTE | 2021-10-05 08:13 | NUR ---
The patient bibs for c/o feeling suicidal w/ plan to "hang self" wants vol psych admission to [facility]. Denies HI. Denies having any hallucinations. Will continue to monitor the patient.
--- NOTE | 2021-10-05 08:17 | NUR ---
URINE COLLECTED AND SENT TO THE LAB
--- NOTE | 2021-10-05 08:18 | NUR ---
COVID ANTIGEN SWAB DONE AND SENT TO THE LAB
--- NOTE | 2021-10-05 09:00 | NUR ---
The patient is offered breakfast but he refused.
--- NOTE | 2021-10-05 09:02 | NUR ---
DR BOOTH MADE AWARE
--- NOTE | 2021-10-05 09:02 | NUR ---
THE PATIENT STATED " I DON`T THINK I`M SUICIDAL ANYMORE AND MIGHT WELL LEAVE THIS PLACE".
--- NOTE | 2021-10-05 09:10 | NUR ---
Patient eloped from facility. Dr Sanchez made aware.
[2021-10-05 09:25] VITALS: BP 132/56
[2021-10-05 09:49] LABS: BASOPHILS % (AUTO) 0.4 % (0.0-2.0); EOSINOPHILS % (AUTO) 0.7 % (0.0-6.0); HEMATOCRIT 40 % (39-51); HEMOGLOBIN 13.1 g/dL (13.5-17.5); LYMPHOCYTES % (AUTO) 23.4 % (20.0-44.0); MEAN CORPUSCULAR HGB CONC 33 g/dl (31.0-36.0); MEAN CORPUSCULAR VOLUME 94 fL (80-96); MONOCYTES # (AUTO) 0.5 K/uL (0.1-1.30); NEUTROPHILS % (AUTO) 69.5 % (43.0-81.0); PLATELET COUNT (AUTO) 306 K/uL (150-450); RED BLOOD CELL COUNT(AUTO) 4.24 MIL/uL (4.5-6.0); WHITE BLOOD COUNT (AUTO) 8.6 K/uL (4.3-11.0)
[2021-10-05 10:17] LABS: BILIRUBIN,URINE NEGATIVE (NEGATIVE); LEUKOCYTE ESTERASE ,URINE NEGATIVE (NEGATIVE); NITRITE, URINE NEGATIVE (NEGATIVE); PH,URINE 5.5 (5.0-8.0); PROTEIN,URINE NEGATIVE (NEGATIVE); UGLUCOSE 250 MG/DL mg/dL (NEGATIVE); UROBILINOGEN,URINE 0.2 EU/dL (0.2)
[2021-10-05 10:45] LABS: ALBUMIN 3.7 g/dL (3.4-5.0); BILIRUBIN,DIRECT 0.1 mg/dL (0.0-0.2); BILIRUBIN,TOTAL 0.2 mg/dL (0.2-1.0); CALCIUM, SERUM 8.2 mg/dL (8.5-10.1); CREATININE 0.7 mg/dL (0.6-1.3); POTASSIUM 3.5 mmol/L (3.5-5.1); TOTAL PROTEIN, SERUM 8.1 g/dL (6.4-8.2)
[2021-10-05 11:01] LABS: COLOR,URINE STRAW (YELLOW)
== END 2021-10-05 09:26 | disposition left against medical advice (07) ==
LOC: ER 07:50
DX: R45.851 Suicidal ideations (principal); Z59.02 Unsheltered homelessness; F31.9 Bipolar disorder, unspecified; F20.9 Schizophrenia, unspecified; Z20.822 Contact with and (suspected) exposure to COVID-19; Z53.20 Procedure and treatment not carried out because of patient's decision for unspecified reasons
CPT/HCPCS: 36415; 80048; 80076; 80143; 80307; 80320; 81003; 85025; 87426; 99285; C9803; G0480

== ENCOUNTER 2021-10-13 07:29 | Emergency (ER) | payer OTHER ==
[~2021-10-13] VITALS: Ht 182.9 cm; Wt 99.8 kg
--- NOTE | 2021-10-13 07:29 | NUR ---
PT BIB SELF C/O SI NO SPECIFIC PLAN. "IM HEARING VOICES TO KILL HIMSELF" PT IS AAOX4, NOT IN RESPIRATORY DISTRESS, V/S STABLE, KEPT RESTED AND COMFORTABLE. WILL CONTINUE TO MONITOR.
[2021-10-13 07:30] VITALS: BP 145/87
--- NOTE | 2021-10-13 07:34 | NUR ---
SEEN AND EXAMINED BY .
--- NOTE | 2021-10-13 07:43 | NUR ---
URINE SPECIMEN COLLECTED AND SENT TO LAB.
--- NOTE | 2021-10-13 07:51 | NUR ---
RAPID COVID TEST COLLECTED AND SENT.
[2021-10-13 08:05] LABS: BASOPHILS # (AUTO) 0.1 K/uL (0.0-0.2); BASOPHILS % (AUTO) 0.6 % (0.0-2.0); HEMATOCRIT 42 % (39-51); LYMPHOCYTES # (AUTO) 1.4 K/uL (0.8-4.8); LYMPHOCYTES % (AUTO) 10.4 % (20.0-44.0); MEAN CORPUSCULAR HGB CONC 33 g/dl (31.0-36.0); MEAN CORPUSCULAR VOLUME 94 fL (80-96); MONOCYTES # (AUTO) 0.6 K/uL (0.1-1.30); MONOCYTES % (AUTO) 4.9 % (2.0-12.0); NEUTROPHILS % (AUTO) 84.1 % (43.0-81.0); PLATELET COUNT (AUTO) 291 K/uL (150-450); WHITE BLOOD COUNT (AUTO) 13.1 K/uL (4.3-11.0)
[2021-10-13 08:14] LABS: BILIRUBIN,URINE NEGATIVE (NEGATIVE); LEUKOCYTE ESTERASE ,URINE NEGATIVE (NEGATIVE); NITRITE, URINE NEGATIVE (NEGATIVE); PH,URINE 5.5 (5.0-8.0); PROTEIN,URINE NEGATIVE (NEGATIVE); UGLUCOSE NEGATIVE (NEGATIVE); UROBILINOGEN,URINE 0.2 EU/dL (0.2)
[2021-10-13 08:17] LABS: COLOR,URINE STRAW (YELLOW)
[2021-10-13 08:50] LABS: BILIRUBIN,DIRECT 0.1 mg/dL (0.0-0.2); BILIRUBIN,TOTAL 0.4 mg/dL (0.2-1.0); CALCIUM, SERUM 8.8 mg/dL (8.5-10.1); CREATININE 0.9 mg/dL (0.6-1.3); POTASSIUM 4.1 mmol/L (3.5-5.1); TOTAL PROTEIN, SERUM 8.7 g/dL (6.4-8.2)
[2021-10-13 09:02] LABS: BACTERIA,URINE None seen /HPF (None Seen); RBC,URINE 0-2 /HPF (0-2); SQUAMOUS EPITHELIAL CELL,UR None Seen /HPF (None Seen); WBC,URINE 0-1 /HPF (0-3)
--- NOTE | 2021-10-13 09:52 | NUR ---
PT IS NO LONGER SUICIDAL, NO LONGER WANTS TO STAY, REFUSED TO SPEAK TO DR TURCIOS PRIOR TO ELOPING. PT ELOPED VIA HIS OWN WHEELCHAIR, DR TURCIOS NOTIFIED.
== END 2021-10-13 09:55 | disposition left against medical advice (07) ==
LOC: ER 07:33
DX: R45.851 Suicidal ideations (principal); Z53.20 Procedure and treatment not carried out because of patient's decision for unspecified reasons; F20.0 Paranoid schizophrenia; F31.9 Bipolar disorder, unspecified; Z91.14 Patient's other noncompliance with medication regimen; F19.10 Other psychoactive substance abuse, uncomplicated; Z59.02 Unsheltered homelessness; Z20.822 Contact with and (suspected) exposure to COVID-19
CPT/HCPCS: 36415; 80048; 80076; 80143; 80307; 80320; 81001; 85025; 87426; 99285; C9803; G0480

== ENCOUNTER 2021-10-14 08:36 | Emergency (ER) | payer OTHER ==
[~2021-10-14] VITALS: Ht 180.3 cm; Wt 97.5 kg
--- NOTE | 2021-10-14 08:44 | NUR ---
To ER bed 13, "Had a dislocation/Fx on Right Ankle- Surg was done but having leg pain throbbing, aaox3, breathing even and non labored, awaiting md orders
--- NOTE | 2021-10-14 09:12 | NUR ---
DR JOHNSON AT BEDSIDE
--- NOTE | 2021-10-14 09:49 | NUR ---
UNABLE TO GIVE URINE AT THIS TIME
--- NOTE | 2021-10-14 09:50 | NUR ---
COVID SWAB DONE AND SENT TO LAB
[2021-10-14 10:04] LABS: BASOPHILS # (AUTO) 0.1 K/uL (0.0-0.2); BASOPHILS % (AUTO) 0.6 % (0.0-2.0); EOSINOPHILS % (AUTO) 1.1 % (0.0-6.0); HEMATOCRIT 41 % (39-51); HEMOGLOBIN 13.8 g/dL (13.5-17.5); LYMPHOCYTES # (AUTO) 1.3 K/uL (0.8-4.8); LYMPHOCYTES % (AUTO) 14.4 % (20.0-44.0); MEAN CORPUSCULAR HGB CONC 34 g/dl (31.0-36.0); MEAN CORPUSCULAR VOLUME 94 fL (80-96); MONOCYTES # (AUTO) 0.7 K/uL (0.1-1.30); MONOCYTES % (AUTO) 7.2 % (2.0-12.0); NEUTROPHILS # (AUTO) 7.1 K/uL (1.8-8.9); NEUTROPHILS % (AUTO) 76.7 % (43.0-81.0); PLATELET COUNT (AUTO) 258 K/uL (150-450); RED BLOOD CELL COUNT(AUTO) 4.39 MIL/uL (4.5-6.0); WHITE BLOOD COUNT (AUTO) 9.3 K/uL (4.3-11.0)
--- NOTE | 2021-10-14 10:13 | NUR ---
URINE COLLECTED AND SENT TO LAB
[2021-10-14 11:20] LABS: ALANINE AMINOTRANSFERASE 68 U/L (12-78); ALBUMIN 3.6 g/dL (3.4-5.0); ALCOHOL, BLOOD 73 mg/dL (0-0); ALKALINE PHOSPHATASE 150 U/L (46-116); ASPARTATE AMINOTRANSFERASE 55 U/L (15-37); BILIRUBIN,DIRECT 0.1 mg/dL (0.0-0.2); BILIRUBIN,TOTAL 0.4 mg/dL (0.2-1.0); CALCIUM, SERUM 8.5 mg/dL (8.5-10.1); CARBON DIOXIDE 30 mmol/L (21-32); CHLORIDE 103 mmol/L (98-107); CREATININE 0.7 mg/dL (0.6-1.3); GLUCOSE 102 mg/dL (74-106); POTASSIUM 3.5 mmol/L (3.5-5.1); SODIUM SERUM 143 mmol/L (136-145); TOTAL PROTEIN, SERUM 7.9 g/dL (6.4-8.2); UREA NITROGEN, BLOOD 7 mg/dL (7-18)
[2021-10-14 11:21] LABS: ACETAMINOPHEN < 2 ug/ml (10-30)
[2021-10-14 12:23] LABS: BILIRUBIN,URINE NEGATIVE (NEGATIVE); COLOR,URINE YELLOW (YELLOW); LEUKOCYTE ESTERASE ,URINE NEGATIVE (NEGATIVE); NITRITE, URINE NEGATIVE (NEGATIVE); PROTEIN,URINE NEGATIVE (NEGATIVE); UGLUCOSE NEGATIVE (NEGATIVE)
[2021-10-14 13:31] LABS: BACTERIA,URINE None seen /HPF (None Seen); MUCUS,URINE Moderate /LPF (None Seen); SQUAMOUS EPITHELIAL CELL,UR None Seen /HPF (None Seen)
--- NOTE | 2021-10-14 18:33 | NUR ---
FAXED CLINICALS TO [facility]TA[facility].
--- NOTE | 2021-10-14 22:52 | NUR ---
CALLED [facility] PER MARISA PT CLINICALS BEING RE[facility]ED AT [facility], WILL CALL BACK WITH UPDATE
--- NOTE | 2021-10-14 22:54 | NUR ---
FOLLOWED UP WITH IRENE
--- NOTE | 2021-10-15 03:08 | NUR ---
F/U WITH IRENE & SPOKE TO MUKUND TO RESULT THE REPORT.
--- NOTE | 2021-10-15 06:04 | NUR ---
FOLLOWED UP WITH INTAKE. STILL AWAITING FOR BEDS. WILL CALL BACK FOR ACCEPTANCE
[2021-10-15 09:18] VITALS: BP 132/74
--- NOTE | 2021-10-15 13:55 | NUR ---
PT ACCEPTED TO [facility] UNDER THE CARE OF DR. HORNER NUMBER FOR REPORT [phone]
--- NOTE | 2021-10-15 13:58 | NUR ---
[facility]ED [facility] AND [facility] UP BLS TRANSPORT ETA 153
--- NOTE | 2021-10-15 14:05 | NUR ---
PT WAS INFORMED HE IS GOING TO [place]. STATES HE DOES NOT WANT TO GO THERE. WANTS TO LEAVE AND IS NO LONGER SUICIDAL. DR ALICEA MADE AWARE AND IS WILLING TO SIGN AMA FORM. LEFT IN STABLE CONDITION.
== END 2021-10-15 14:00 | disposition home or self-care (01) ==
LOC: ER 08:44
DX: R45.851 Suicidal ideations (principal); M25.571 Pain in right ankle and joints of right foot; Z82.49 Family history of ischemic heart disease and other diseases of the circulatory system; Z59.00 Homelessness unspecified; F20.9 Schizophrenia, unspecified; F31.9 Bipolar disorder, unspecified; R03.0 Elevated blood-pressure reading, without diagnosis of hypertension; Z20.822 Contact with and (suspected) exposure to COVID-19
CPT/HCPCS: 36415; 73610; 80048; 80076; 80143; 80307; 80320; 81001; 85025; 87426; 99285; C9803; G0480

== ENCOUNTER 2021-10-18 20:44 | Emergency (ER) | payer OTHER ==
[~2021-10-18] VITALS: Ht 182.9 cm; Wt 99.8 kg
--- NOTE | 2021-10-18 20:52 | NUR ---
NILAY 39 FROM [place] FOR C/O SI AND HEARING VOICES. REQUESTING VOLUNTARY PSYCH ADMISSION. SAFETY 1:[address]
--- NOTE | 2021-10-18 20:58 | NUR ---
URINE SPECIMEN COLLECTED AND SENT TO LAB.
[2021-10-18 21:25] LABS: BILIRUBIN,URINE MODERATE (NEGATIVE); COLOR,URINE YELLOW (YELLOW); LEUKOCYTE ESTERASE ,URINE NEGATIVE (NEGATIVE); NITRITE, URINE NEGATIVE (NEGATIVE); PROTEIN,URINE 30 mg/dl (NEGATIVE); UGLUCOSE NEGATIVE (NEGATIVE)
[2021-10-18] MEDS ORDERED: OLANZAPINE 5 MG TABLET ONE (21:30)
[2021-10-18] MEDS ORDERED: OLANZAPINE 5 MG TABLET PO ONE (21:30)
[2021-10-18 21:38] LABS: BASOPHILS % (AUTO) 0.3 % (0.0-2.0); EOSINOPHILS % (AUTO) 0.4 % (0.0-6.0); HEMATOCRIT 42 % (39-51); HEMOGLOBIN 14.1 g/dL (13.5-17.5); LYMPHOCYTES # (AUTO) 1.7 K/uL (0.8-4.8); LYMPHOCYTES % (AUTO) 15.1 % (20.0-44.0); MEAN CORPUSCULAR HGB CONC 33 g/dl (31.0-36.0); MEAN CORPUSCULAR VOLUME 94 fL (80-96); MONOCYTES # (AUTO) 0.6 K/uL (0.1-1.30); MONOCYTES % (AUTO) 5.4 % (2.0-12.0); NEUTROPHILS # (AUTO) 8.7 K/uL (1.8-8.9); NEUTROPHILS % (AUTO) 78.8 % (43.0-81.0); PLATELET COUNT (AUTO) 260 K/uL (150-450); WHITE BLOOD COUNT (AUTO) 11.1 K/uL (4.3-11.0)
[2021-10-18 21:44] LABS: BACTERIA,URINE RARE /HPF (None Seen); MUCUS,URINE Many /LPF (None Seen); WBC,URINE 0-2 /HPF (0-3)
[2021-10-18 21:53] LABS: CARBON DIOXIDE 30 mmol/L (21-32); CHLORIDE 98 mmol/L (98-107); CREATININE 1.2 mg/dL (0.6-1.3); GLUCOSE 120 mg/dL (74-106); POTASSIUM 3.3 mmol/L (3.5-5.1); SODIUM SERUM 135 mmol/L (136-145); UREA NITROGEN, BLOOD 11 mg/dL (7-18)
[2021-10-18 21:58] LABS: ALANINE AMINOTRANSFERASE 71 U/L (12-78); ALBUMIN 3.9 g/dL (3.4-5.0); ALCOHOL, BLOOD < 3 mg/dL (0-0); ALKALINE PHOSPHATASE 177 U/L (46-116); ASPARTATE AMINOTRANSFERASE 40 U/L (15-37); BILIRUBIN,DIRECT 0.2 mg/dL (0.0-0.2); BILIRUBIN,TOTAL 0.7 mg/dL (0.2-1.0); TOTAL PROTEIN, SERUM 8.8 g/dL (6.4-8.2)
[2021-10-18 21:59] LABS: ACETAMINOPHEN < 2 ug/ml (10-30)
--- NOTE | 2021-10-19 01:45 | NUR ---
FACESHEET AND CLINICALS FAXED TO [facility].
[2021-10-19 06:00] VITALS: BP 144/87
--- NOTE | 2021-10-19 06:53 | NUR ---
CALL FROM [facility]. PT ACCEPTED TO [facility] BY DR FIGUEROA. # FOR REPORT [phone]
--- NOTE | 2021-10-19 07:11 | NUR ---
REPORT GIVEN TO CHEYANNE ECHEVERRIA FROM [facility] FOR HÉCTOR
--- NOTE | 2021-10-19 07:12 | NUR ---
[facility] ETA 45 MINUTES.
--- NOTE | 2021-10-19 08:50 | NUR ---
REPORT GIVEN TO ALBULANCE STAFF
--- NOTE | 2021-10-19 11:02 | NUR ---
THE PATIENT IS DISCHARGED TO [facility] IN STABLE CONDITION VIA [facility] AMBULANCE.
== END 2021-10-19 11:03 ==
LOC: ER 20:47
DX: R45.851 Suicidal ideations (principal); Z59.00 Homelessness unspecified; F20.9 Schizophrenia, unspecified; F31.9 Bipolar disorder, unspecified; Z20.822 Contact with and (suspected) exposure to COVID-19
CPT/HCPCS: 36415; 80048; 80076; 80143; 80307; 80320; 81001; 85025; 87426; 99285; C9803; G0480

== ENCOUNTER 2021-11-25 10:16 | Emergency (ER) | payer OTHER ==
[~2021-11-25] VITALS: Ht 170.2 cm; Wt 77.1 kg
--- NOTE | 2021-11-25 10:25 | NUR ---
The patient patient bibs for c/o "Right Foot Pain 8/10 x 1mo". no apparent deformity noted. Will continue to monitor the patient.
--- NOTE | 2021-11-25 11:00 | NUR ---
MOVE SHEET SUBMITTED.
[2021-11-25] MEDS ORDERED: MIRT-90 PO (11:12)
[2021-11-25 11:20] LABS: BASOPHILS % (AUTO) 0.3 % (0.0-2.0); EOSINOPHILS % (AUTO) 1.9 % (0.0-6.0); HEMATOCRIT 40 % (39-51); HEMOGLOBIN 13.2 g/dL (13.5-17.5); LYMPHOCYTES # (AUTO) 1.5 K/uL (0.8-4.8); LYMPHOCYTES % (AUTO) 14.2 % (20.0-44.0); MEAN CORPUSCULAR HGB CONC 33 g/dl (31.0-36.0); MEAN CORPUSCULAR VOLUME 93 fL (80-96); MONOCYTES # (AUTO) 0.5 K/uL (0.1-1.30); NEUTROPHILS # (AUTO) 8.3 K/uL (1.8-8.9); NEUTROPHILS % (AUTO) 78.6 % (43.0-81.0); PLATELET COUNT (AUTO) 277 K/uL (150-450); RED BLOOD CELL COUNT(AUTO) 4.26 MIL/uL (4.5-6.0); WHITE BLOOD COUNT (AUTO) 10.6 K/uL (4.3-11.0)
[2021-11-25 11:22] LABS: BILIRUBIN,URINE SMALL (NEGATIVE); COLOR,URINE YELLOW (YELLOW); LEUKOCYTE ESTERASE ,URINE NEGATIVE (NEGATIVE); NITRITE, URINE NEGATIVE (NEGATIVE); PROTEIN,URINE TRACE mg/dl (NEGATIVE); UGLUCOSE NEGATIVE (NEGATIVE); UROBILINOGEN,URINE 0.2 EU/dL (0.2)
[2021-11-25 11:29] LABS: ALANINE AMINOTRANSFERASE 44 U/L (12-78); ALBUMIN 3.6 g/dL (3.4-5.0); ALCOHOL, BLOOD < 3 mg/dL (0-0); ALKALINE PHOSPHATASE 141 U/L (46-116); ASPARTATE AMINOTRANSFERASE 30 U/L (15-37); BILIRUBIN,DIRECT 0.2 mg/dL (0.0-0.2); BILIRUBIN,TOTAL 0.7 mg/dL (0.2-1.0); CALCIUM, SERUM 9.2 mg/dL (8.5-10.1); CARBON DIOXIDE 30 mmol/L (21-32); CHLORIDE 106 mmol/L (98-107); CREATININE 0.8 mg/dL (0.6-1.3); GLUCOSE 110 mg/dL (74-106); POTASSIUM 3.2 mmol/L (3.5-5.1); SODIUM SERUM 144 mmol/L (136-145); TOTAL PROTEIN, SERUM 7.9 g/dL (6.4-8.2); UREA NITROGEN, BLOOD 12 mg/dL (7-18)
[2021-11-25 11:30] LABS: ACETAMINOPHEN 0 ug/ml (10-30)
--- NOTE | 2021-11-25 11:55 | NUR ---
COVID SWAB DONE AND SENT TO LAB
--- NOTE | 2021-11-25 11:59 | NUR ---
URINE COLLECTED AND SENT TO THE LAB
[2021-11-25 12:02] LABS: BACTERIA,URINE None seen /HPF (None Seen); RBC,URINE 0-2 /HPF (0-2); SQUAMOUS EPITHELIAL CELL,UR None Seen /HPF (None Seen); URINE AMORPHOUS URATE Many /HPF (None Seen); WBC,URINE 0-2 /HPF (0-3)
[2021-11-25] MEDS ORDERED: VANCOMYCIN 1 GM in IV D5W 250 ML IV ONE (12:30)
--- NOTE | 2021-11-25 13:26 | NUR ---
Per Marnie , patient will be accepted at [facility] under Dr. Phipps. Dr. Phipps will call Dr Templeton for peer to peer
--- NOTE | 2021-11-25 13:53 | NUR ---
CALLED PHARMACY FOR VANCOMYCIN, SPOKE TO LAMBERTO
--- NOTE | 2021-11-25 13:58 | NUR ---
Marnie ([facility]) room 409-3 Dr. Phipps number for report [phone], [facility] ETA 1700 pm.
--- NOTE | 2021-11-25 15:54 | NUR ---
REPORT GIVEN TO NURSE FANG FROM [facility] FOR HÉCTOR
[2021-11-25 17:02] VITALS: BP 135/75
--- NOTE | 2021-11-25 17:52 | NUR ---
THE PATIENT IS TRANSFERED TO [facility] IN STABLE CONDITION AND PER POLICY.
== END 2021-11-25 17:54 | disposition short-term general hospital (02) ==
LOC: ER 10:30
DX: L03.115 Cellulitis of right lower limb (principal); M25.571 Pain in right ankle and joints of right foot; Z20.822 Contact with and (suspected) exposure to COVID-19; Z59.00 Homelessness unspecified; S82.891D Other fracture of right lower leg, subsequent encounter for closed fracture with routine healing; X58.XXXD Exposure to other specified factors, subsequent encounter; F10.20 Alcohol dependence, uncomplicated; Y90.0 Blood alcohol level of less than 20 mg/100 ml; F20.9 Schizophrenia, unspecified; F31.9 Bipolar disorder, unspecified; R70.0 Elevated erythrocyte sedimentation rate
CPT/HCPCS: 36415; 80048; 80076; 80143; 80307; 80320; 81001; 85025; 85652; 86140; 87081; 87426; 96365; 99285; C9803; J3370; G0480; J7060

== ENCOUNTER 2021-12-02 14:24 | Emergency (ER) | payer OTHER ==
[~2021-12-02] VITALS: Ht 177.8 cm; Wt 90.7 kg
[2021-12-02 14:35] VITALS: BP 158/62
--- NOTE | 2021-12-02 14:40 | NUR ---
The patient bibs for "Chronic Right LE swelling/pain". Rates pain 4/10. Will continue to monitor the patient.
[2021-12-02] MEDS ORDERED: CLIN300C12 PO (14:55)
--- NOTE | 2021-12-02 16:04 | NUR ---
Patient discharged to previous living condition in stable condition. Written and verbal after care instructions given. Patient verbalizes understanding of instruction.
== END 2021-12-02 16:05 | disposition home or self-care (01) ==
LOC: ER 14:29
DX: L03.115 Cellulitis of right lower limb (principal); F20.9 Schizophrenia, unspecified; F31.9 Bipolar disorder, unspecified; Z59.00 Homelessness unspecified; Z79.899 Other long term (current) drug therapy

== ENCOUNTER 2022-02-07 05:05 | Emergency (ER) | payer OTHER ==
[~2022-02-07] VITALS: Ht 182.9 cm; Wt 97.5 kg
[~2022-02-07 05:05] MED LIST: CLIN300C12 PO
--- NOTE | 2022-02-07 05:25 | NUR ---
BIBRA 88 FROM BACK OF THE BUS C/O ABD PAIN +N/V . PT WAS FOUND HYPERVENTALATING . PT A/OX3. TOLERATINF R/A AT 97. CONNECTED PT TO POX AND MONITOR.
[2022-02-07 06:00] LABS: BASOPHILS % (AUTO) 0.1 % (0.0-2.0); HEMATOCRIT 41 % (39-51); HEMOGLOBIN 13.4 g/dL (13.5-17.5); LYMPHOCYTES # (AUTO) 1.5 K/uL (0.8-4.8); LYMPHOCYTES % (AUTO) 8.8 % (20.0-44.0); MEAN CORPUSCULAR HGB CONC 33 g/dl (31.0-36.0); MEAN CORPUSCULAR VOLUME 89 fL (80-96); MONOCYTES # (AUTO) 0.8 K/uL (0.1-1.30); MONOCYTES % (AUTO) 4.5 % (2.0-12.0); NEUTROPHILS # (AUTO) 14.8 K/uL (1.8-8.9); NEUTROPHILS % (AUTO) 86.6 % (43.0-81.0); PLATELET COUNT (AUTO) 300 K/uL (150-450)
[2022-02-07 06:08] LABS: CALCIUM, SERUM 9.2 mg/dL (8.5-10.1); CREATININE 0.9 mg/dL (0.6-1.3); POTASSIUM 4.1 mmol/L (3.5-5.1)
[2022-02-07 06:12] LABS: ALBUMIN 4.1 g/dL (3.4-5.0); BILIRUBIN,DIRECT 0.2 mg/dL (0.0-0.2); BILIRUBIN,TOTAL 0.8 mg/dL (0.2-1.0); TOTAL PROTEIN, SERUM 8.8 g/dL (6.4-8.2)
--- NOTE | 2022-02-07 06:31 | NUR ---
PT NOT ABLE TO URINATE AT THIS TIME; WILL F/U
[2022-02-07] MEDS ORDERED: IV NS 0.9% 1,000 ML IV ONE (07:00)
[2022-02-07] MEDS ORDERED: ONDANSETRON HCL/PF - ER 4 MG/2 ML VIAL IV ONE (07:00)
[2022-02-07] MEDS ORDERED: ONDANSETRON HCL/PF 4 MG/2 ML VIAL ONE (07:11)
--- NOTE | 2022-02-07 07:20 | NUR ---
URINE COLLECTED SENT TO LAB
--- NOTE | 2022-02-07 07:22 | NUR ---
PATIENT WANTS TO USE RESTROOM, DID NOT LET NURSE START IV LINE OR FLUIDS.
[2022-02-07] MEDS ORDERED: ONDA4TAB11 PO (07:42)
[2022-02-07 07:59] LABS: BILIRUBIN,URINE SMALL (NEGATIVE); COLOR,URINE YELLOW (YELLOW); LEUKOCYTE ESTERASE ,URINE NEGATIVE (NEGATIVE); NITRITE, URINE NEGATIVE (NEGATIVE); PROTEIN,URINE 30 mg/dl (NEGATIVE); UGLUCOSE NEGATIVE (NEGATIVE); UROBILINOGEN,URINE 0.2 EU/dL (0.2)
--- NOTE | 2022-02-07 08:08 | NUR ---
Patient discharged to home in stable condition. Written and verbal after care instructions given. Patient verbalizes understanding of instruction.
[2022-02-07 08:09] VITALS: BP 135/88
[2022-02-07 08:57] LABS: WBC,URINE 0-2 /HPF (0-3)
[2022-02-07 08:58] LABS: BACTERIA,URINE Few /HPF (None Seen); SQUAMOUS EPITHELIAL CELL,UR 0-2 /HPF (None Seen)
== END 2022-02-07 08:09 | disposition home or self-care (01) ==
LOC: ER 05:06
DX: R11.2 Nausea with vomiting, unspecified (principal); F20.9 Schizophrenia, unspecified; Z59.00 Homelessness unspecified
CPT/HCPCS: 36415; 80048-TC; 80076-TC; 81001; 83690-TC; 83735-TC; 85025-TC; J2405

== ENCOUNTER 2022-06-17 05:13 | Emergency (ER) | payer OTHER ==
[~2022-06-17] VITALS: Ht 182.9 cm; Wt 97.5 kg
[~2022-06-17 05:13] MED LIST changes: +ONDA4TAB11 PO
--- NOTE | 2022-06-17 05:50 | NUR ---
Pt bibs c/o depression, requesting [facility] admission. Changed to gown, urine sample given. COVID swab collected.
[2022-06-17 07:23] LABS: CALCIUM, SERUM 9.3 mg/dL (8.5-10.1); CARBON DIOXIDE 29 mmol/L (21-32); CHLORIDE 103 mmol/L (98-107); CREATININE 0.7 mg/dL (0.6-1.3); GLUCOSE 106 mg/dL (74-106); POTASSIUM 3.9 mmol/L (3.5-5.1); SODIUM SERUM 141 mmol/L (136-145); UREA NITROGEN, BLOOD 9 mg/dL (7-18)
[2022-06-17 07:44] LABS: ALANINE AMINOTRANSFERASE 62 U/L (12-78); ALBUMIN 3.7 g/dL (3.4-5.0); ALCOHOL, BLOOD < 3 mg/dL (0-0); ALKALINE PHOSPHATASE 149 U/L (46-116); ASPARTATE AMINOTRANSFERASE 40 U/L (15-37); BILIRUBIN,DIRECT 0.3 mg/dL (0.0-0.2); BILIRUBIN,TOTAL 0.9 mg/dL (0.2-1.0); TOTAL PROTEIN, SERUM 7.9 g/dL (6.4-8.2)
[2022-06-17 07:56] LABS: ACETAMINOPHEN < 10 ug/ml (10-30)
[2022-06-17 08:07] LABS: BASOPHILS % (AUTO) 0.4 % (0.0-2.0); EOSINOPHILS % (AUTO) 1.7 % (0.0-6.0); HEMATOCRIT 42 % (39-51); LYMPHOCYTES # (AUTO) 1.5 K/uL (0.8-4.8); LYMPHOCYTES % (AUTO) 15.5 % (20.0-44.0); MEAN CORPUSCULAR HGB CONC 34 g/dl (31.0-36.0); MEAN CORPUSCULAR VOLUME 91 fL (80-96); MONOCYTES # (AUTO) 0.5 K/uL (0.1-1.30); MONOCYTES % (AUTO) 4.6 % (2.0-12.0); NEUTROPHILS # (AUTO) 7.6 K/uL (1.8-8.9); NEUTROPHILS % (AUTO) 77.8 % (43.0-81.0); PLATELET COUNT (AUTO) 260 K/uL (150-450); RED BLOOD CELL COUNT(AUTO) 4.58 MIL/uL (4.5-6.0); WHITE BLOOD COUNT (AUTO) 9.8 K/uL (4.3-11.0)
[2022-06-17 08:20] VITALS: BP 138/77
--- NOTE | 2022-06-17 11:30 | NUR ---
KAYLEN faxed clinicals to [facility] TEL:[phone] fax:[phone] for for voluntary psychiatric treatment at [facility] [[facility] [place] [address] FAX:[phone]]. Plan: AKYLEN referred pt. to [facility] [[address] [place] [address] FAX:[phone]] for inpatient psychiatric treatment.
--- NOTE | 2022-06-18 09:36 | NUR ---
TRIED CALLING [phone], INBOX FULL WASN'T ABLE TO LEAVE VM.
== END 2022-06-17 13:41 ==
LOC: ER 05:15
DX: F31.9 Bipolar disorder, unspecified (principal); R45.851 Suicidal ideations; F20.9 Schizophrenia, unspecified; Z20.822 Contact with and (suspected) exposure to COVID-19; Z59.00 Homelessness unspecified
CPT/HCPCS: 99285; 85025; 80048; 80076; 36415; 87426; 80143; 80320; C9803; G0480

== ENCOUNTER 2022-07-14 21:24 | Emergency (ER) | payer OTHER ==
--- NOTE | 2022-07-14 22:01 | NUR ---
CALLED TO TRIAGE , NO ANSWER
--- NOTE | 2022-07-14 22:56 | NUR ---
CALLED TO TRIAGE , NO ANSWER
== END 2022-07-14 23:07 | disposition left against medical advice (07) ==
LOC: ER 21:25
DX: Z53.21 Procedure and treatment not carried out due to patient leaving prior to being seen by health care provider (principal)

== ENCOUNTER 2022-07-31 15:52 | Emergency (ER) | payer OTHER ==
[~2022-07-31] VITALS: Ht 182.9 cm; Wt 95.3 kg
--- NOTE | 2022-07-31 15:58 | NUR ---
TO ER BED 13, [facility] OFFICER FOR SUICIDAL IDEATION "TO JUMP IN FRONT OF A VEHICLE" ON 5150 HOLD DTS/DTO, [id number], COOPERATIVE, CONNECTED TO MONITOR, AWAITING MD ORDERS
--- NOTE | 2022-07-31 16:12 | NUR ---
URINE SAMPLE COLLECTED AND SENT TO LAB
[2022-07-31 16:51] LABS: BASOPHILS % (AUTO) 0.3 % (0.0-2.0); EOSINOPHILS % (AUTO) 0.5 % (0.0-6.0); HEMATOCRIT 46 % (39-51); HEMOGLOBIN 14.7 g/dL (13.5-17.5); LYMPHOCYTES # (AUTO) 1.5 K/uL (0.8-4.8); LYMPHOCYTES % (AUTO) 14.6 % (20.0-44.0); MEAN CORPUSCULAR HGB CONC 32 g/dl (31.0-36.0); MEAN CORPUSCULAR VOLUME 93 fL (80-96); MONOCYTES # (AUTO) 0.6 K/uL (0.1-1.30); MONOCYTES % (AUTO) 5.6 % (2.0-12.0); NEUTROPHILS # (AUTO) 8.3 K/uL (1.8-8.9); PLATELET COUNT (AUTO) 281 K/uL (150-450); WHITE BLOOD COUNT (AUTO) 10.5 K/uL (4.3-11.0)
[2022-07-31 17:05] LABS: CALCIUM, SERUM 8.7 mg/dL (8.5-10.1); CARBON DIOXIDE 25 mmol/L (21-32); CHLORIDE 105 mmol/L (98-107); CREATININE 0.8 mg/dL (0.6-1.3); GLUCOSE 114 mg/dL (74-106); POTASSIUM 3.8 mmol/L (3.5-5.1); SODIUM SERUM 141 mmol/L (136-145); UREA NITROGEN, BLOOD 7 mg/dL (7-18)
[2022-07-31 17:12] LABS: BILIRUBIN,URINE 1+ (NEGATIVE); COLOR,URINE YELLOW (YELLOW); LEUKOCYTE ESTERASE ,URINE NEGATIVE (NEGATIVE); NITRITE, URINE NEGATIVE (NEGATIVE); PROTEIN,URINE TRACE mg/dl (NEGATIVE); UGLUCOSE NEGATIVE (NEGATIVE)
[2022-07-31 17:45] LABS: ALBUMIN 3.8 g/dL (3.4-5.0); ALCOHOL, BLOOD < 3 mg/dL (0-0); ASPARTATE AMINOTRANSFERASE 35 U/L (15-37); BILIRUBIN,DIRECT 0.2 mg/dL (0.0-0.2)
[2022-07-31 18:01] LABS: ALANINE AMINOTRANSFERASE 40 U/L (12-78); ALKALINE PHOSPHATASE 156 U/L (46-116); BILIRUBIN,TOTAL 0.7 mg/dL (0.2-1.0); TOTAL PROTEIN, SERUM 7.8 g/dL (6.4-8.2)
[2022-07-31 18:05] LABS: BACTERIA,URINE None seen /HPF (None Seen); MUCUS,URINE Few /LPF (None Seen); SQUAMOUS EPITHELIAL CELL,UR 0-2 /HPF (None Seen); WBC,URINE 0-2 /HPF (0-3)
--- NOTE | 2022-07-31 18:49 | NUR ---
FAXED CLINICALS TO [facility] INTAKE.
--- NOTE | 2022-07-31 21:55 | NUR ---
5150 HOLD BROKEN BY [facility] CARDIOPULMONARY TECHNICIAN AND EEG TECH.
--- NOTE | 2022-07-31 22:00 | NUR ---
PT ACCEPTED TO [facility] BY DR CHACKO. # FOR REPORT [phone]
--- NOTE | 2022-07-31 22:08 | NUR ---
REPORT GIVEN TO JACKI GIL
--- NOTE | 2022-07-31 22:09 | NUR ---
[facility] ETA 1 HOUR
--- NOTE | 2022-07-31 22:29 | NUR ---
[facility] AT BEDSIDE FOR TRANSPORT TO [facility].
[2022-07-31 22:49] VITALS: BP 131/90
== END 2022-07-31 22:59 ==
LOC: ER 15:59
DX: R45.851 Suicidal ideations (principal); Z20.822 Contact with and (suspected) exposure to COVID-19; Z59.00 Homelessness unspecified; F20.9 Schizophrenia, unspecified; F31.9 Bipolar disorder, unspecified
CPT/HCPCS: 99285; 85025; 80048; 80076; 81001; 36415; 87426; 80143; 80320; 80307; C9803; G0480

== ENCOUNTER 2022-08-08 07:08 | Emergency (ER) | payer OTHER ==
[~2022-08-08] VITALS: Ht 172.7 cm; Wt 97.5 kg
--- NOTE | 2022-08-08 07:50 | NUR ---
COVID SWAB COLLECTED AND SENT TO LAB
--- NOTE | 2022-08-08 07:50 | NUR ---
REQUESTING VOLUNTARY PSYCH ADMISSION TO COUNT INCLUDES [facility]. SI PLAN: RUN TO TRAFFIC. AMBULATED TO ROOM WITH STEADY GAIT. [id number]
--- NOTE | 2022-08-08 08:04 | NUR ---
PT C/O JUAN CARLOS. DR COTTO MADE AWARE AND VERBALLY ORDERED ZOFRAN 4MG PO TO BE GIVEN.
[2022-08-08] MEDS ORDERED: ONDANSETRON 4 MG TAB.RAPDIS ONE (08:06)
--- NOTE | 2022-08-08 08:07 | NUR ---
PATIENT REFUSED TO TAKE ZOFRAN, ZOFRAN 4MG WASTED. DR COTTO MADE AWARE.
--- NOTE | 2022-08-08 08:07 | NUR ---
URINE SAMPLE COLLECTED AND SENT TO LAB
[2022-08-08 08:18] LABS: BASOPHILS % (AUTO) 0.2 % (0.0-2.0); EOSINOPHILS % (AUTO) 0.3 % (0.0-6.0); HEMATOCRIT 44 % (39-51); HEMOGLOBIN 14.4 g/dL (13.5-17.5); LYMPHOCYTES % (AUTO) 13.9 % (20.0-44.0); MEAN CORPUSCULAR HGB CONC 33 g/dl (31.0-36.0); MEAN CORPUSCULAR VOLUME 93 fL (80-96); MONOCYTES # (AUTO) 0.8 K/uL (0.1-1.30); MONOCYTES % (AUTO) 5.6 % (2.0-12.0); NEUTROPHILS # (AUTO) 11.3 K/uL (1.8-8.9); PLATELET COUNT (AUTO) 304 K/uL (150-450); RED BLOOD CELL COUNT(AUTO) 4.76 MIL/uL (4.5-6.0); WHITE BLOOD COUNT (AUTO) 14.1 K/uL (4.3-11.0)
[2022-08-08 08:20] LABS: BILIRUBIN,URINE NEGATIVE (NEGATIVE); COLOR,URINE YELLOW (YELLOW); LEUKOCYTE ESTERASE ,URINE NEGATIVE (NEGATIVE); NITRITE, URINE NEGATIVE (NEGATIVE); PH,URINE 5.5 (5.0-8.0); PROTEIN,URINE NEGATIVE (NEGATIVE); UGLUCOSE NEGATIVE (NEGATIVE); UROBILINOGEN,URINE 0.2 EU/dL (0.2)
[2022-08-08 08:26] LABS: CALCIUM, SERUM 8.7 mg/dL (8.5-10.1); CARBON DIOXIDE 24 mmol/L (21-32); CHLORIDE 106 mmol/L (98-107); CREATININE 0.8 mg/dL (0.6-1.3); GLUCOSE 93 mg/dL (74-106); SODIUM SERUM 144 mmol/L (136-145); UREA NITROGEN, BLOOD 12 mg/dL (7-18)
[2022-08-08 08:32] LABS: ALANINE AMINOTRANSFERASE 43 U/L (12-78); ALBUMIN 4.1 g/dL (3.4-5.0); ALCOHOL, BLOOD 18 mg/dL (0-0); ALKALINE PHOSPHATASE 152 U/L (46-116); ASPARTATE AMINOTRANSFERASE 44 U/L (15-37); BILIRUBIN,DIRECT 0.1 mg/dL (0.0-0.2); BILIRUBIN,TOTAL 0.3 mg/dL (0.2-1.0); TOTAL PROTEIN, SERUM 8.1 g/dL (6.4-8.2)
[2022-08-08 08:33] LABS: ACETAMINOPHEN < 10 ug/ml (10-30)
--- NOTE | 2022-08-08 08:37 | NUR ---
PT VERBALIZED THAT HE DOES NOT WANT TO CONTINUE ADMISSION TO [facility]. PT VERBALIZED THAT HE IS NO LONGER SUICIDAL.
--- NOTE | 2022-08-08 08:38 | NUR ---
Olga Lidia treadwell in [facility] - 08/08/22 at 0926 by EVANGELINA PT SERA, STEADY GAIT, AAOX4.
[2022-08-08 08:46] LABS: BACTERIA,URINE Few /HPF (None Seen); RBC,URINE 0-2 /HPF (0-2); SQUAMOUS EPITHELIAL CELL,UR Few /HPF (None Seen); WBC,URINE 0-2 /HPF (0-3)
[2022-08-08 09:07] VITALS: BP 142/88
[2022-08-09] MEDS ORDERED: ONDANSETRON 4 MG TAB.RAPDIS SL ONE (09:00)
== END 2022-08-08 08:40 | disposition left against medical advice (07) ==
LOC: ER 07:14
DX: R45.851 Suicidal ideations (principal); Z59.00 Homelessness unspecified; Z20.822 Contact with and (suspected) exposure to COVID-19; F20.9 Schizophrenia, unspecified; F31.9 Bipolar disorder, unspecified
CPT/HCPCS: 99283; 85025; 80048; 80076; 81001; 36415; 87426; 80143; 80320; 80307; Q0162; C9803; G0480

== ENCOUNTER 2025-06-17 17:52 | Emergency (ER) | payer MEDICAID, OTHER ==
[~2025-06-17] VITALS: Ht 177.8 cm; Wt 101.6 kg
[2025-06-17 18:00] VITALS: BP 118/81; TEMP 98.5
[2025-06-17 18:21] VITALS: O2SAT 98
== END 2025-06-17 18:52 ==
LOC: ER 17:53
DX: F10.129 Alcohol abuse with intoxication, unspecified (principal); F12.90 Cannabis use, unspecified, uncomplicated; F20.9 Schizophrenia, unspecified; F31.9 Bipolar disorder, unspecified; Y90.9 Presence of alcohol in blood, level not specified

== ENCOUNTER 2025-07-22 17:09 | Emergency (ER) | payer MEDICAID, OTHER ==
[~2025-07-22] VITALS: Ht 182.9 cm; Wt 95.3 kg
[2025-07-22 17:13] VITALS: BP 144/85; TEMP 98.2; O2SAT 96
== END 2025-07-22 18:50 | disposition left against medical advice (07) ==
LOC: ER 17:17
DX: M79.604 Pain in right leg (principal); F12.90 Cannabis use, unspecified, uncomplicated; F20.9 Schizophrenia, unspecified; F31.9 Bipolar disorder, unspecified
CPT/HCPCS: 73610-TC; 73630-TC